=== PATIENT | male | born 1975 | race Caucasian/White ===

== ENCOUNTER 2022-03-20 21:59 | Emergency (ER) | payer MEDICAID, SELFPAY ==
--- NOTE | 2022-03-20 21:56 | ECG_ITS ---
APPROVED REPORT Exam: Resting ECG HR:105 bpm ECG Measurements Heart Rate 105 AXES TX 155 P 75 QRSd 86 QRS 89 QT 306 T 66 QTc 367 Conclusion SINUS TACHYCARDIA Bi-atrial abnormality ABNORMAL RHYTHM ECG UNCONFIRMED REPORT Electronically signed by : Tate Mendes MD 03/23/2022 18:04:46
[2022-03-20 21:59] VITALS: BP 147/102; PULSE 95; RESP 17; TEMP 36.8; O2SAT 99; BMI 22.0
--- NOTE | 2022-03-20 22:03 | XR_ITS ---
PROCEDURE INFORMATION: Exam: XR Chest Exam date and time: 03/20/2022 10:01 PM Age: 46 years old Clinical indication: Sternal or substernal pain; Prior surgery; Surgery date: 6+ months; Surgery type: Chest tube placed a few years ago for left sided pneumothorax. Patient HX: Chest pain, chills, smoker. 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 Been in high heat for past 2 days. ; Additional info: Cp TECHNIQUE: Imaging protocol: XR of the chest. Views: 2 views. COMPARISON: No relevant prior studies available. FINDINGS: Lungs: No focal consolidation. Pleural spaces: No pleural effusion. No pneumothorax. Heart/Mediastinum: Unremarkable cardiomediastinal silhouette. Bones/joints: No acute osseous findings. IMPRESSION: No focal consolidation.
[2022-03-20 22:18] LABS: Basophils # 0.1 K/mm3 (0-0.2); Basophils % 0.5 % (0.1-2.0); Eosinophils # 0.2 K/mm3 (0.0-0.4); Eosinophils % 1.1 % (0.1-12.0); Hematocrit 44.7 % (42.0-52.0); Hemoglobin 15.7 g/dL (14.1-18.0); Lymphocytes # 0.7 K/mm3 (0.7-4.5); Lymphocytes % 4.7 % (10-50); Mean Corpuscular Hemoglobin 32.9 pg (27.0-31.2); Mean Corpuscular Volume 93.9 fl (80-94); Mean Platelet Volume 7.4 fl (7.4-10.4); Monocytes # 0.1 K/mm3 (0.1-1.0); Monocytes % 0.9 % (1.7-9.3); Neutrophils # 13.4 K/mm3 (1.8-7.8); Neutrophils % 92.9 % (37.0-80.0); Platelet Count 295 K/mm3 (142-424); Red Blood Count 4.76 M/mm3 (4.60-6.20); Red Cell Distribution Width 13.7 % (11.5-17.5); White Blood Count 14.5 K/mm3 (4.8-10.8)
[2022-03-20 22:22] VITALS: BP 132/82; PULSE 98; RESP 20; O2SAT 97
[2022-03-20 22:22] LABS: Blood Urea Nitrogen 15 mg/dl (9-20); Calcium 9.7 mg/dl (8.4-10.2); Carbon Dioxide 28 mmol/L (22.0-30.0); Chloride 105 mmol/L (98-107); Creatinine Clearance Estimated 97 mL/min (50-200); Estimated Glomerular Filt Rate 92 ml/min (>60); GFR (African American) 111 ML/MIN (>60); Glucose 72 mg/dl (74-100); Sodium 139 mmol/L (136-145)
[2022-03-20 22:23] LABS: MANUAL DIFFERENTIAL MANUAL DIFFERENTIAL (MANUAL DIFF)
[2022-03-20 22:25] LABS: Coronavirus 19, PCR Not Detected (NotDetected); Influenza A, PCR Not Detected (NotDetected); Influenza B, PCR Not Detected (NotDetected)
[2022-03-20 22:27] LABS: Lactic Acid 1.5 mmol/L (0.7-2.1)
[2022-03-20 22:30] VITALS: BP 141/94; PULSE 101; RESP 20; O2SAT 97
[2022-03-20 22:41] LABS: Procalcitonin 0.209 ng/mL (0.0-2.0); Troponin I < 0.01 ng/ml (0.00-0.034)
[2022-03-20 22:45] LABS: Erythrocyte Sedimentation Rate 8 mm/hr (0-15)
[2022-03-20 22:51] LABS: Lymphocytes % 8 % (10-50); Monocytes % 1 % (2-9); Monoscreen (Rapid) Negative (Negative); Neutrophils % 91 % (42-76); Platelet Estimate Normal; Stomatocytes 1+; Total Cells Counted 100
[2022-03-20 23:00] VITALS: BP 144/96; PULSE 95; RESP 23; O2SAT 94
--- NOTE | 2022-03-20 23:00 | [facility].EDCP ---
ED Disposition Clinical Impression: IVDU (intravenous drug user) Chest pain Qualifiers: Chest pain type: unspecified Qualified Code(s): R07.9 - Chest pain, unspecified Disposition: Home, Self-Care Condition on Discharge: Good Instructions: DI for Atypical Chest Pain Additional Instructions: advil/tyenol and see pcp for follow up and no drug use Referrals: Tate Baptiste MD [Primary Care Provider] - - Critical Care Critical Care Time: No Attestation: On 03/20/22, the high probability of a clinically significant, sudden or life threatening deterioration of the following system(s) required my full and direct attention, intervention and personal management. The time I documented below is in addition to time spent performing reported procedures but includes the following listed in this critical care notation. Medical Decision Making - Medical Records Medical records reviewed: Yes: I reviewed the patient's medical records. - Jarred Inquiry Pt receiving controlled substance: No Vital Signs: 03/20/22 21:59 03/20/22 22:22 03/20/22 22:30 Temperature 98.2 F Temperature Source Oral Pulse Rate 98 H 101 H Pulse Rate [Right] 95 H Respiratory Rate 17 20 20 Blood Pressure 132/82 141/94 H Blood Pressure [Right Arm] 147/102 H Blood Pressure Mean 98 105 Blood Pressure Mean [Right Arm] 117 02 Sat by Pulse Oximetry 99 97 97 - Lab Data Lab results reviewed: Yes: I reviewed the patient's lab results. Lab Results 03/20/22 22:00: WBC 14.5 H, RBC 4.76, Hgb 15.7, Hct 44.7, MCV 93.9, MCH 32.9 H, MCHC 35.0, RDW 13.7, Plt Count 295, MPV 7.4, Neut % (Auto) 92.9 H, Lymph % (Auto) 4.7 L, Towns % (Auto) 0.9 L, Eos % (Auto) 1.1, Baso % (Auto) 0.5, Neut # (Auto) 13.4 H, Lymph # (Auto) 0.7, Towns # (Auto) 0.1, Eos # (Auto) 0.2, Baso # (Auto) 0.1, Total Counted 100, Neutrophils % (Manual) 91 H, Lymphocytes % (Manual) 8 L, Monocytes % (Manual) 1 L, Platelet Estimate Normal, RBC Morphology Not Reportable, Stomatocytes 1+, ESR 8 03/20/22 22:00: Sodium 139, Potassium 4.0, Chloride 105, Carbon Dioxide 28, Anion Gap 10.0, BUN 15, Creatinine 0.90, Estimated Creat Clear 97, Estimated GFR 92, Est GFR ( Amer) 111, Glucose 72 L, Calcium 9.7, Troponin I < 0.01, C-Reactive Protein 2.0, Procalcitonin 0.209 03/20/22 22:00: Monoscreen Negative 03/20/22 22:08: Lactate 1.5 Result diagrams: 03/20/22 22:00 03/20/22 22:00 Orders (Tests/Meds): ED MEDICATIONS Generic Name Dose Route Start Last Admin Trade Name Freq PRN Reason Stop Dose Admin Sodium Chloride 1,000 mls @ 999 mls/hr 03/20/22 22:15 03/20/22 22:06 Sod Chlor 0.9% 1000ml Bag IV 03/20/22 23:15 999 mls/hr .Q1H1M BALDEV Administration Sodium Chloride 1,000 mls @ 999 mls/hr 03/20/22 23:00 03/20/22 22:56 Sod Chlor 0.9% 1000ml Bag IV 03/21/22 00:00 999 mls/hr .Q1H1M BALDEV Administration Discontinued Medications Generic Name Dose Route Start Last Admin Trade Name Freq PRN Reason Stop Dose Admin Aspirin 324 mg 03/20/22 22:05 03/20/22 22:06 Aspirin 81mg Chewable Tablet PO 03/20/22 22:06 324 mg ONCE ONE Administration ORDERS Category Date Time Status Drug Screen,Urine Stat Lab 03/20/22 22:03 Ordered Rapid PCR Covid and Flu A/B Stat Lab 03/20/22 22:10 Received Troponin I Q3H Lab 03/21/22 01:15 Ordered Troponin I Q3H Lab 03/21/22 04:15 Ordered Urinalysis and Microscopic Stat Lab 03/20/22 22:03 Ordered Blood Culture Stat Micro 03/20/22 22:08 Received - Radiology Data #1 Image(s): Chest Image Reviewed: Yes I have reviewed radiologist's interpretation Preliminary Findings: Normal/NAD - ECG Data Tracing #1 Normal Sinus Rhythm: Yes Ischemic changes: non-specific ST-T wave changes Chest Pain HPI - General Chief Complaint: Chest Pain Stated Complaint: cp Time Seen by Provider: 03/20/22 22:15 Mode of Arrival: Ambulatory Source of Information: Patient, Significant Other, Medical Record Limitations
[2022-03-20 23:32] VITALS: BP 134/78; PULSE 90; RESP 18; TEMP 36.7; O2SAT 97
== END 2022-03-20 23:33 | disposition home or self-care (01) ==
PROVIDERS: Emergency Provider Emergency Medicine; PCP Family Medicine
DX: R07.9 Chest pain, unspecified (principal); M79.10 Myalgia, unspecified site; R51.9 Headache, unspecified; Z20.822 Contact with and (suspected) exposure to COVID-19; Z82.49 Family history of ischemic heart disease and other diseases of the circulatory system; Z81.2 Family history of tobacco abuse and dependence
CPT/HCPCS: 71046; 80048; 83605; 84145; 84484; 85007; 85025; 85651; 86140; 86318; 87040; 93005; 96361; 96374; 99285; C9803; U0003; U0005

== ENCOUNTER 2023-05-14 15:49 | Emergency (ER) | payer SELFPAY ==
[2023-05-14 15:51] VITALS: BP 144/96; PULSE 97; RESP 18; TEMP 36.8; O2SAT 100; BMI 22.0
[2023-05-14 16:05] VITALS: BMI 22.0
[2023-05-14 16:09] LABS: Coronavirus 19, PCR Not Detected (NotDetected); Influenza A, PCR Not Detected (NotDetected); Influenza B, PCR Not Detected (NotDetected)
--- NOTE | 2023-05-14 16:21 | PC.NURSE ---
pt assisted to bathroom via wheelchair and tech Katy. Porsha called for myself for assistance due to pt getting diaphoretic, nauseated and felt that she was going to pass out when she stood up from using the bathroom. Pt assisted to wheelchair by myself and staff and transported back to her room, EKG performed and placed back on heart monitor with vital signs taken. WNL at this time, MD aware. No new orders at this time
[2023-05-14 16:30] VITALS: BP 116/78; PULSE 98; O2SAT 96
--- NOTE | 2023-05-14 16:37 | [facility].EDGENADL ---
Discharge Plan Disposition Patient Disposition: Home, Self-Care Condition: Good Prescriptions Prescriptions: New ondansetron 4 mg tablet,disintegrating 4 mg PO Q6H PRN (Reason: nausea and vomiting) Qty: 20 0RF Referrals Follow up/Referrals: Provider,Referral, MD [Primary Care Provider] - See instructions Activity Restrictions/Add. Instructions Additional Instructions/Restrictions: Please follow-up with your primary care provider. Your labs showed elevated liver enzymes. Recommend follow-up with PCP for recheck of your labs and evaluation for possible hepatitis. Please return to the emergency department if you develop any new or worsening symptoms or become concerned for your health. Please take Zofran as needed for nausea and vomiting. Clinical Impressions Clinical Impression: IVDU (intravenous drug user), Transaminitis, Headache, Malaise Discharge ED Provider: Tyrese Townsend Adult HPI General Chief complaint: Headache Stated complaint: body aches , SANCHEZ Time Seen by Provider: 05/14/23 16:03 Mode of Arrival: Ambulatory Source of Information: Patient Limitations: No Limitations Description of Symptoms (Recalled from ER Triage Doc. by RN): c/o body/joint aches and SANCHEZ with fever since yesterday History of Present Illness HPI narrative: 48-year-old male, history of IV drug use, last used meth yesterday, presents with generalized symptoms including weakness, fatigue, body aches, feels febrile (did not test temperature at home).patient reports frontal headache, abnormal for him. Symptoms have been worse since yesterday. Patient denies history of bacteremia in the past. Denies any current chest pain or shortness of breath. Denies any changes in bowel or bladder function, reports history of constipation. Denies any urinary symptoms. Reports intermittent right ear pain. Related Data Previous Rx's Medication Instructions Recorded ondansetron 4 mg disintegrating 4 mg PO Q6H PRN nausea and 05/14/23 tablet vomiting #20 tabs Allergies Allergy/AdvReac Type Severity Reaction Status Date / Time No Known Allergies Allergy Verified 03/20/22 22:03 [facility] Disclaimer: The information contained in this section may have been updated after the patient was seen, as this information can be updated by other users. Social History Smoking Status: Current every day smoker alcohol intake: current current occupational status: employed Travel in the last 8 weeks: None ROS Obtained: Yes All systems reviewed & no additional complaints except as documented Physical Exam General General appearance: alert and anxious Head Head exam: atraumatic and normocephalic Eye Eye exam: Present normal appearance, PERRL and EOMI ENT ENT exam: Present normal oropharynx, mucous membranes moist, TM's normal bilaterally and normal external ear exam Neck Neck exam: Present normal inspection and full ROM Chest Chest inspection: Present normal inspection and symmetric chest wall rise; Absent tenderness Respiratory Respiratory exam: Present normal lung sounds bilaterally; Absent respiratory distress Cardiovascular Cardiovascular exam: Present regular rate and normal rhythm Abdominal Exam Abdominal exam: Present soft; Absent distention, tenderness or guarding Extremities Exam Extremities exam: Present normal inspection; Absent edema or joint swelling Back Exam Back exam: Present normal inspection; Absent tenderness Neurological Exam Neurological exam: Present alert, oriented X3 and CN II-XII intact; Absent motor sensory deficit Psychiatric Psychiatric exam: Present normal affect and anxious Skin Skin exam: Present warm, dry, normal color and other (Excoriations noted) Lymphatic Lymphatic Findings: no adenopathy Medical Decision Making Medical Records Medical records reviewed: Yes I reviewed the patient's medical records. Jarred Inquiry Pt receiving controlled substance: No Jarred was queried for this patient: N
[2023-05-14 17:00] VITALS: BP 153/101; PULSE 96; O2SAT 98
[2023-05-14 17:01] LABS: Basophils % 0.1 % (0.1-2.0); Eosinophils # 0.2 K/mm3 (0.0-0.4); Eosinophils % 2.8 % (0.1-12.0); Lymphocytes # 0.5 K/mm3 (0.7-4.5); Lymphocytes % 7.2 % (10-50); Mean Corpuscular Hemoglobin 32.6 pg (27.0-31.2); Mean Corpuscular Volume 93.1 fl (80-94); Mean Platelet Volume 7.1 fl (7.4-10.4); Monocytes # 0.2 K/mm3 (0.1-1.0); Neutrophils # 5.5 K/mm3 (1.8-7.8); Neutrophils % 86.9 % (37.0-80.0); Platelet Count 207 K/mm3 (142-424); Red Blood Count 4.62 M/mm3 (4.60-6.20); Red Cell Distribution Width 13.8 % (11.5-17.5); White Blood Count 6.3 K/mm3 (4.8-10.8)
[2023-05-14 17:03] LABS: MANUAL DIFFERENTIAL MANUAL DIFFERENTIAL (MANUAL DIFF)
[2023-05-14 17:04] LABS: Alanine Aminotransferase 189 U/L (12-78); Albumin Level 3.9 g/dl (3.5-5.0); Albumin/Globulin Ratio 1.3 (1.1-1.8); Alkaline Phosphatase 161 U/L (38-126); Aspartate Amino Transferase 200 U/L (17-59); Bilirubin,Total 0.7 mg/dl (0.2-1.3); Blood Urea Nitrogen 9 mg/dl (9-20); Calcium 8.7 mg/dl (8.4-10.2); Carbon Dioxide 28 mmol/L (22.0-30.0); Chloride 100 mmol/L (98-107); Creatinine Clearance Estimated 107 mL/min (50-200); Estimated Glomerular Filt Rate 104 ml/min (>60); GFR (African American) 126 ML/MIN (>60); Glucose 152 mg/dl (74-100); Sodium 136 mmol/L (136-145); Total Protein,Serum 6.9 g/dl (6.3-8.2)
[2023-05-14 17:30] VITALS: BP 155/124; PULSE 98; O2SAT 97
[2023-05-14 17:30] LABS: Eosinophils % 2 % (0-3); Lymphocytes % 7 % (10-50); Neutrophils % 91 % (42-76); Platelet Estimate Normal; RBC Morphology Normal; Total Cells Counted 100
[2023-05-14 17:49] VITALS: BP 140/92; PULSE 98; RESP 18; TEMP 36.8; O2SAT 97
== END 2023-05-14 17:50 | disposition home or self-care (01) ==
PROVIDERS: Emergency Provider Emergency Medicine
DX: R51.9 Headache, unspecified (principal); R50.9 Fever, unspecified; R74.01 Elevation of levels of liver transaminase levels
CPT/HCPCS: 80053; 85007; 85025; 87040; 87636; 96361; 96374; 96375; 99285; J2405